=== PATIENT | female | born 1990 | race Two or more races ===

== ENCOUNTER 2019-06-15 14:15 | Observation (INO) | payer OTHER | END 2019-06-15 16:40 | disposition home or self-care (01) | DRG 566 | LOC: LDRP 14:15 | PROVIDERS: ADMIT Specialist; ATTEND Specialist | DX: O62.9 Abnormality of forces of labor, unspecified (principal); O26.893 Other specified pregnancy related conditions, third trimester; N89.8 Other specified noninflammatory disorders of vagina; Z3A.34 34 weeks gestation of pregnancy | CPT/HCPCS: 59025; 76815; 81002; G0378; 96374; 96375 ==